=== PATIENT | male | born 1980 | race American Indian/Alaskan Native ===

== ENCOUNTER 2017-12-23 21:02 | Emergency (ER) | payer MEDICAID ==
[2017-12-23 21:22] VITALS: O2SAT 98
--- NOTE | 2017-12-23 21:46 | C.PDOC ---
History Of Present Illness 37 y/o male presents to the ED complaining of penile pain, onset just prior to arrival. Patient states he was having sexual relations with his and had a semi-erect penis, then noticed sudden acute pain. After, patient noted brief hematuria. No fever, chills, or other complaints. Time Seen by Provider: 12/23/17 21:26 Chief Complaint (Nursing): Male Genitourinary History Per: Patient History/Exam Limitations: no limitations Onset/Duration Of Symptoms: Mins Current Symptoms Are (Timing): Still Present Past Medical History Reviewed: Historical Data, Nursing Documentation, Vital Signs Vital Signs: Last Vital Signs Temp 98.4 F 12/23/17 21:17 Pulse 85 12/23/17 21:17 Resp 18 12/23/17 21:17 BP 117/77 12/23/17 21:17 Pulse Ox 98 12/23/17 21:57 - Medical History PMH: Diabetes Surgical History: Hernia Repair Family History: States: Diabetes - Social History Hx Alcohol Use: Yes Hx Substance Use: No - Immunization History Hx Tetanus Toxoid Vaccination: No Hx Influenza Vaccination: No Hx Pneumococcal Vaccination: No Review Of Systems Except As Marked, All Systems Reviewed And Found Negative. Constitutional: Negative for: Fever, Chills Genitourinary: Positive for: Hematuria, Penile Pain. Negative for: Penile Discharge, Rash Physical Exam - Physical Exam Appears: Non-toxic, No Acute Distress Skin: Normal Color, Warm, Dry Head: Atraumatic, Normacephalic Eye(s): bilateral: Normal Inspection, PERRL, EOMI Nose: Normal Oral Mucosa: Moist Neck: Normal ROM, Supple Cardiovascular: Rhythm Regular, No Murmur Respiratory: Normal Breath Sounds, No Accessory Muscle Use Gastrointestinal/Abdominal: Soft, No Tenderness, No Distention Male Genital: Normal Inspection (Normal circumcised penis, no hematoma noted, (+ ) resolving hematuria), Circumcised, Other (Mild tenderness approximately 1/3 down the shaft) Extremity: Bilateral: Atraumatic, Normal Color And Temperature Neurological/Psych: Oriented x3, Normal Speech, Other (no focal deficits) Gait: Steady ED Course And Treatment O2 Sat by Pulse Oximetry: 98 (RA) Pulse Ox Interpretation: Normal Medical Decision Making Medical Decision Making: Of note, pt now reports he is out of his Glargine 5mg daily. States he checks finger sticks daily usually between 200-300. Case discussed w/ Dr. Champagne who recommends having patient follow up in the office tomorrow. penile sprain, no hematoma normal urination, mild hematuria clearing, no extravasation of urine into penis. Disposition Doctor Will See Patient In The: Office Counseled Patient/Family Regarding: Studies Performed, Diagnosis - Disposition Referrals: [facility] [Outside] [facility] [Outside] Sloan Champagne Jr., MD [Staff Provider] - Non [facility] Provider, [Primary Care Provider] - Disposition: HOME/ ROUTINE Disposition Time: 21:56 Condition: GOOD Additional Instructions: ice pack to the penis 1/2 hour per hour no sexual relations nor masturbating until evaluated by the Urologist Call Dr. Champagne's office (Urologist) for appointment to be seen in his office tomorrow/Wednesday Prescriptions: GlipiZIDE [Glucotrol] 10 mg PO DAILY #30 tab Forms: [facility] ([place]) - Clinical Impression Clinical Impression: Penile trauma - Scribe Statement The provider has reviewed the documentation as recorded by the Scribe (Charlene Meredith) Provider Attestation: All medical record entries made by the Scribe were at my direction and personally dictated by me. I have reviewed the chart and agree that the record accurately reflects my personal performance of the history, physical exam, medical decision making, and the department course for this patient. I have also personally directed, reviewed, and agree with the discharge instructions and disposition.
[2017-12-23 22:22] VITALS: BP 132/78; PULSE 78; RESP 20; TEMP 98.1
== END 2017-12-23 22:21 | disposition home or self-care (01) ==
LOC: SUPCPDRO 21:02 → C.ER 21:02
DX: S39.94XA Unspecified injury of external genitals, initial encounter (principal); X58.XXXA Exposure to other specified factors, initial encounter